=== PATIENT | male | born 1945 | race Caucasian/White ===

== ENCOUNTER → 2017-01-23 | Outpatient (CLI) | payer OTHER ==
[2017-01-23 10:31] LABS: BASOPHILS % (AUTO) 0.6 % (0.0-2.0); EOSINOPHILS # (AUTO) 0.2 K/uL (0.0-0.4); HEMOGLOBIN 11.5 g/dL (14.0-18.0); LYMPHOCYTES # (AUTO) 1.2 K/uL (1.0-5.5); LYMPHOCYTES % (AUTO) 28.3 % (20.5-51.5); MEAN CORPUSCULAR HEMOGLOBIN 29 pg (27-31); MEAN CORPUSCULAR HGB CONC 34 % (32-36); MEAN CORPUSCULAR VOLUME 86 fL (79.0-98.0); MONOCYTES # (AUTO) 0.3 K/uL (0.0-1.0); MONOCYTES % (AUTO) 7.6 % (1.7-9.3); NEUTROPHILS # (AUTO) 2.5 K/uL (1.8-7.7); NEUTROPHILS % (AUTO) 58.5 % (40.0-70.0); PLATELET COUNT (AUTO) 194 K/uL (130-430); RED BLOOD CELL COUNT(AUTO) 3.95 MIL/uL (4.2-6.2); RED CELL DISTRIBUTION WIDTH 12.6 % (9.0-15.0); WHITE BLOOD COUNT (AUTO) 4.2 K/uL (4.8-10.8)
[2017-01-23 10:36] LABS: BILIRUBIN,URINE NEGATIVE (NEGATIVE); BLOOD, URINE NEGATIVE (NEGATIVE); CLARITY/URINE CLEAR (CLEAR); COLOR,URINE YELLOW (YELLOW); GLUCOSE,URINE NEGATIVE (NEGATIVE); KETONES,URINE NEGATIVE (NEGATIVE); LEUKOCYTE ESTERASE ,URINE NEGATIVE (NEGATIVE); NITRITE, URINE NEGATIVE (NEGATIVE); PH,URINE 5.5 (5.0-8.0); PROTEIN URINE 2+ (NEGATIVE); UROBILINOGEN,URINE 0.2 (0.2-1.0)
[2017-01-23 10:44] LABS: RBC,URINE 0-3 /HPF (0-3); WBC,URINE 0-3 /HPF (0-3)
[2017-01-23 10:45] LABS: ALANINE AMINOTRANSFERASE 24 U/L (12-78); ALBUMIN 3.6 g/dL (3.4-4.8); ANION GAP 3 (5-15); ASPARTATE AMINOTRANSFERASE 15 U/L (10-37); BACTERIA,URINE RARE /HPF (None Seen); CALCIUM 8.8 mg/dL (8.4-11.0); CHLORIDE 109 mmol/L (98-107); CHOLESTEROL 146 mg/dL (<200); CREATININE 1.61 mg/dL (0.55-1.30); GLUCOSE 111 mg/dL (70-99); HDL CHOLESTEROL 47 mg/dL (>45); LDL CHOLESTEROL 75 mg/dL (<100); MUCUS,URINE 1+ /LPF (None Seen); POTASSIUM 4.6 mmol/L (3.5-5.1); SODIUM SERUM 139 mmol/L (136-145); TOTAL BILIRUBIN 0.3 mg/dL (0.0-1.0); TOTAL PROTEIN, SERUM 6.9 g/dL (6.4-8.3); TRIGLYCERIDES 108 mg/dL (30-150); UREA NITROGEN, BLOOD 25 mg/dL (8-21); URIC ACID 6.8 mg/dL (2.4-7.0)
[2017-01-26 06:06] LABS: FOLATE (FOLIC ACID) 11.9 ng/mL (>3.0)
[2017-01-26 14:18] LABS: HEMOGLOBIN A1C 6.9 % (4.8-5.6)
[2017-01-26 14:21] LABS: PROSTATE SPECIFIC AG 12.1 ng/mL (0.0-4.0)
[2017-01-26 15:34] LABS: CREATININE, URINE 114.6 mg/dL
[2017-01-26 15:35] LABS: MICROALBUMIN/CREAT RATIO, UR 363.9 MG/G CRE (0.0-30.0)
== END | disposition home or self-care (01) ==
LOC: SLB 09:36
PROVIDERS: ATTEND Internal Medicine
DX: E11.9 Type 2 diabetes mellitus without complications (principal)
CPT/HCPCS: 36415; 80053; 80061; 81000-TC; 82043; 82306; 82570; 82607; 82746; 83036; 84153; 84550-TC; 85025; 86677

== ENCOUNTER 2017-03-13 10:26 | Outpatient (CLI) | payer OTHER ==
[2017-03-13 11:33] LABS: FREE T4 (FREE THYROXINE) 0.8 ng/dL (0.6-1.6); THYROID STIMULATING HORMONE 5.04 uIu/mL (0.34-4.82)
== END 2017-03-13 17:33 | disposition home or self-care (01) ==
LOC: SLB 10:26
PROVIDERS: ATTEND Internal Medicine
DX: E03.9 Hypothyroidism, unspecified (principal)
CPT/HCPCS: 36415; 84439; 84443-TC

== ENCOUNTER 2017-03-18 07:38 | Day surgery (SDC) | payer OTHER ==
[~2017-03-18] VITALS: Ht 170.2 cm; Wt 83.9 kg
[2017-03-18] MEDS ORDERED: SIMETHICONE 40 MG/0.6 ML ML ONE (07:55)
[2017-03-18] MEDS: MIDAZOLAM HCL 5 MG/5 ML VIAL ONE ×4 (09:15→09:36)
[2017-03-18] MEDS: MEPERIDINE HCL/PF 100 MG/ML AMP ONE ×3 (09:15→09:43)
[2017-03-18 13:02] VITALS: BP 180/103; PULSE 76; RESP 15
== END 2017-03-18 11:15 | disposition home or self-care (01) ==
LOC: SDS 07:38
PROVIDERS: ATTEND Internal Medicine Gastroenterology
DX: D12.2 Benign neoplasm of ascending colon (principal); K57.30 Diverticulosis of large intestine without perforation or abscess without bleeding; K64.8 Other hemorrhoids; D12.8 Benign neoplasm of rectum; K21.9 Gastro-esophageal reflux disease without esophagitis; E11.9 Type 2 diabetes mellitus without complications; I10 Essential (primary) hypertension; D64.9 Anemia, unspecified
CPT/HCPCS: 36415; 43239; 45380; 87081; 88305; 88312; 88313; J2175; J2250; J7030

== ENCOUNTER 2017-03-25 08:48 | Outpatient (CLI) | payer OTHER | END 2017-03-25 17:52 | disposition home or self-care (01) | LOC: SUS 08:48 | PROVIDERS: ATTEND Internal Medicine | DX: M47.896 Other spondylosis, lumbar region (principal); I73.9 Peripheral vascular disease, unspecified | CPT/HCPCS: 72110; 93923 ==

== ENCOUNTER 2017-05-31 15:02 | Outpatient (CLI) | payer OTHER ==
[2017-05-31 15:28] LABS: BASOPHILS % (AUTO) 0.7 % (0.0-2.0); EOSINOPHILS # (AUTO) 0.2 K/uL (0.0-0.4); EOSINOPHILS % (AUTO) 4.4 % (0.0-4.0); HEMATOCRIT 34.5 % (36-54); HEMOGLOBIN 11.4 g/dL (14.0-18.0); LYMPHOCYTES # (AUTO) 1.1 K/uL (1.0-5.5); LYMPHOCYTES % (AUTO) 21.4 % (20.5-51.5); MEAN CORPUSCULAR HEMOGLOBIN 28 pg (27-31); MEAN CORPUSCULAR HGB CONC 33 % (32-36); MEAN CORPUSCULAR VOLUME 86 fL (79.0-98.0); MONOCYTES # (AUTO) 0.3 K/uL (0.0-1.0); MONOCYTES % (AUTO) 6.7 % (1.7-9.3); NEUTROPHILS # (AUTO) 3.4 K/uL (1.8-7.7); NEUTROPHILS % (AUTO) 66.8 % (40.0-70.0); PLATELET COUNT (AUTO) 233 K/uL (130-430); RED BLOOD CELL COUNT(AUTO) 4.02 MIL/uL (4.2-6.2); RED CELL DISTRIBUTION WIDTH 12.7 % (9.0-15.0)
[2017-05-31 16:18] LABS: ANION GAP 3 (5-15); CHLORIDE 112 mmol/L (98-107); CREATININE 1.46 mg/dL (0.55-1.30); GLUCOSE 129 mg/dL (70-99); POTASSIUM 5.6 mmol/L (3.5-5.1); SODIUM SERUM 141 mmol/L (136-145); UREA NITROGEN, BLOOD 31 mg/dL (8-21)
== END 2017-05-31 17:44 | disposition home or self-care (01) ==
LOC: SLB 15:02
PROVIDERS: ATTEND Internal Medicine
DX: E11.22 Type 2 diabetes mellitus with diabetic chronic kidney disease (principal); N18.9 Chronic kidney disease, unspecified; D63.1 Anemia in chronic kidney disease; E78.5 Hyperlipidemia, unspecified
CPT/HCPCS: 36415; 80048; 82306; 82607; 84443-TC; 85025

== ENCOUNTER 2017-12-27 09:03 | Outpatient (CLI) | payer OTHER ==
[2017-12-27 09:29] LABS: BASOPHILS % (AUTO) 0.7 % (0.0-2.0); EOSINOPHILS # (AUTO) 0.3 K/uL (0.0-0.4); EOSINOPHILS % (AUTO) 5.6 % (0.0-4.0); HEMATOCRIT 31.9 % (36-54); HEMOGLOBIN 10.7 g/dL (14.0-18.0); LYMPHOCYTES # (AUTO) 1.2 K/uL (1.0-5.5); LYMPHOCYTES % (AUTO) 24.2 % (20.5-51.5); MEAN CORPUSCULAR HEMOGLOBIN 29 pg (27-31); MEAN CORPUSCULAR HGB CONC 34 % (32-36); MEAN CORPUSCULAR VOLUME 87 fL (79.0-98.0); MONOCYTES # (AUTO) 0.4 K/uL (0.0-1.0); MONOCYTES % (AUTO) 7.6 % (1.7-9.3); NEUTROPHILS % (AUTO) 61.9 % (40.0-70.0); PLATELET COUNT (AUTO) 244 K/uL (130-430); RED BLOOD CELL COUNT(AUTO) 3.65 MIL/uL (4.2-6.2); RED CELL DISTRIBUTION WIDTH 12.9 % (9.0-15.0); WHITE BLOOD COUNT (AUTO) 4.9 K/uL (4.8-10.8)
[2017-12-27 09:46] LABS: ALANINE AMINOTRANSFERASE 35 U/L (12-78); ALBUMIN 3.6 g/dL (3.4-4.8); ANION GAP 5 (5-15); ASPARTATE AMINOTRANSFERASE 19 U/L (10-37); CHLORIDE 111 mmol/L (98-107); CHOLESTEROL 107 mg/dL (<200); CREATININE 1.66 mg/dL (0.55-1.30); GLUCOSE 113 mg/dL (70-99); HDL CHOLESTEROL 50 mg/dL (>45); LDL CHOLESTEROL 48 mg/dL (<100); SODIUM SERUM 143 mmol/L (136-145); TOTAL BILIRUBIN 0.3 mg/dL (0.0-1.0); TRIGLYCERIDES 57 mg/dL (30-150); UREA NITROGEN, BLOOD 28 mg/dL (8-21); URIC ACID 6.3 mg/dL (2.4-7.0)
[2017-12-28 12:33] LABS: HEMOGLOBIN A1C 6.9 % (4.8-5.6)
[2017-12-29 09:59] LABS: MICROALBUMIN URINE RANDOM 132.4 ug/ml (NOT ESTABLISHED); MICROALBUMIN/CREAT RATIO, UR 122.6 MG/G CRE (0.0-30.0)
== END 2017-12-27 20:56 | disposition home or self-care (01) ==
LOC: SLB 09:03
PROVIDERS: ATTEND Specialist
DX: I10 Essential (primary) hypertension (principal); E11.21 Type 2 diabetes mellitus with diabetic nephropathy; E11.65 Type 2 diabetes mellitus with hyperglycemia; I70.90 Unspecified atherosclerosis; E78.2 Mixed hyperlipidemia; E53.8 Deficiency of other specified B group vitamins; E55.9 Vitamin D deficiency, unspecified; E03.8 Other specified hypothyroidism
CPT/HCPCS: 36415; 80053; 80061; 82043; 82306; 82570; 82607; 83036; 84550-TC; 85025

== ENCOUNTER 2018-03-29 10:36 | Outpatient (CLI) | payer OTHER ==
[2018-03-29 11:27] LABS: BASOPHILS # (AUTO) 0.1 K/uL (0.0-0.2); BASOPHILS % (AUTO) 1.4 % (0.0-2.0); EOSINOPHILS # (AUTO) 0.2 K/uL (0.0-0.4); EOSINOPHILS % (AUTO) 4.1 % (0.0-4.0); HEMATOCRIT 34.4 % (36-54); HEMOGLOBIN 11.6 g/dL (14.0-18.0); LYMPHOCYTES # (AUTO) 1.1 K/uL (1.0-5.5); LYMPHOCYTES % (AUTO) 24.9 % (20.5-51.5); MEAN CORPUSCULAR HEMOGLOBIN 30 pg (27-31); MEAN CORPUSCULAR HGB CONC 34 % (32-36); MEAN CORPUSCULAR VOLUME 90 fL (79.0-98.0); MONOCYTES # (AUTO) 0.3 K/uL (0.0-1.0); MONOCYTES % (AUTO) 6.6 % (1.7-9.3); NEUTROPHILS # (AUTO) 2.5 K/uL (1.8-7.7); PLATELET COUNT (AUTO) 253 K/uL (130-430); RED BLOOD CELL COUNT(AUTO) 3.84 MIL/uL (4.2-6.2); RED CELL DISTRIBUTION WIDTH 12.9 % (9.0-15.0); WHITE BLOOD COUNT (AUTO) 4.3 K/uL (4.8-10.8)
[2018-03-29 11:51] LABS: ALANINE AMINOTRANSFERASE 26 U/L (12-78); ANION GAP 4 (5-15); ASPARTATE AMINOTRANSFERASE 18 U/L (10-37); CALCIUM 9.4 mg/dL (8.4-11.0); CHLORIDE 106 mmol/L (98-107); CREATININE 2.05 mg/dL (0.55-1.30); GLUCOSE 90 mg/dL (70-99); POTASSIUM 5.3 mmol/L (3.5-5.1); SODIUM SERUM 139 mmol/L (136-145); THYROID STIMULATING HORMONE 4.13 uIu/mL (0.34-4.82); TOTAL BILIRUBIN 0.4 mg/dL (0.0-1.0); UREA NITROGEN, BLOOD 35 mg/dL (8-21)
[2018-03-31 13:27] LABS: HEMOGLOBIN A1C 6.7 % (4.8-5.6); PROSTATE SPECIFIC AG 14.3 ng/mL (0.0-4.0)
== END 2018-03-29 20:23 | disposition home or self-care (01) ==
LOC: SLB 10:36
PROVIDERS: ATTEND Internal Medicine
DX: I10 Essential (primary) hypertension (principal); E11.65 Type 2 diabetes mellitus with hyperglycemia; E78.5 Hyperlipidemia, unspecified; E03.9 Hypothyroidism, unspecified
CPT/HCPCS: 36415; 80053; 83036; 84153; 84443-TC; 85025

== ENCOUNTER 2019-09-06 10:05 | Outpatient (CLI) | payer OTHER ==
[2019-09-06 10:54] LABS: BASOPHILS % (AUTO) 0.9 % (0.0-2.0); EOSINOPHILS # (AUTO) 0.2 K/uL (0.0-0.4); EOSINOPHILS % (AUTO) 4.1 % (0.0-4.0); HEMATOCRIT 35.8 % (36-54); HEMOGLOBIN 12.1 g/dL (14.0-18.0); LYMPHOCYTES # (AUTO) 1.1 K/uL (1.0-5.5); LYMPHOCYTES % (AUTO) 23.7 % (20.5-51.5); MEAN CORPUSCULAR HEMOGLOBIN 29 pg (27-31); MEAN CORPUSCULAR HGB CONC 34 % (32-36); MEAN CORPUSCULAR VOLUME 87 fL (79.0-98.0); MONOCYTES # (AUTO) 0.4 K/uL (0.0-1.0); MONOCYTES % (AUTO) 8.2 % (1.7-9.3); NEUTROPHILS # (AUTO) 2.8 K/uL (1.8-7.7); NEUTROPHILS % (AUTO) 63.1 % (40.0-70.0); PLATELET COUNT (AUTO) 227 K/uL (130-430); WHITE BLOOD COUNT (AUTO) 4.5 K/uL (4.8-10.8)
[2019-09-06 11:40] LABS: ALANINE AMINOTRANSFERASE 47 U/L (12-78); ANION GAP 5 (5-15); ASPARTATE AMINOTRANSFERASE 25 U/L (10-37); CALCIUM 9.1 mg/dL (8.4-11.0); CHLORIDE 107 mmol/L (98-107); CREATININE 1.77 mg/dL (0.55-1.30); GLUCOSE 200 mg/dL (70-99); POTASSIUM 4.5 mmol/L (3.5-5.1); SODIUM SERUM 141 mmol/L (136-145); TOTAL BILIRUBIN 0.5 mg/dL (0.0-1.0); UREA NITROGEN, BLOOD 36 mg/dL (8-21)
[2019-09-06 11:41] LABS: ALBUMIN 3.6 g/dL (3.4-4.8); THYROID STIMULATING HORMONE 5.19 uIu/mL (0.36-3.74); URIC ACID 7.6 mg/dL (2.4-7.0)
[2019-09-06 11:49] LABS: CHOLESTEROL 157 mg/dL (<200); HDL CHOLESTEROL 45 mg/dL (>45); LDL CHOLESTEROL 83 mg/dL (<100); TRIGLYCERIDES 131 mg/dL (30-150)
[2019-09-07 11:14] LABS: HEMOGLOBIN A1C 8.1 % (4.8-5.6)
== END 2019-09-06 20:00 | disposition home or self-care (01) ==
LOC: SLB 10:05
PROVIDERS: ATTEND Internal Medicine
DX: E11.69 Type 2 diabetes mellitus with other specified complication (principal); E78.5 Hyperlipidemia, unspecified; E03.9 Hypothyroidism, unspecified; E56.9 Vitamin deficiency, unspecified; E55.9 Vitamin D deficiency, unspecified
CPT/HCPCS: 36415; 80053; 80061; 82306; 82607; 83036; 84443-TC; 84550-TC; 85025

== ENCOUNTER 2019-11-11 10:28 | Outpatient (CLI) | payer OTHER ==
[2019-11-11 11:44] LABS: ANION GAP 4 (5-15); CALCIUM 8.1 mg/dL (8.4-11.0); CHLORIDE 106 mmol/L (98-107); CREATININE 1.77 mg/dL (0.55-1.30); GLUCOSE 226 mg/dL (70-99); POTASSIUM 4.6 mmol/L (3.5-5.1); SODIUM SERUM 140 mmol/L (136-145); THYROID STIMULATING HORMONE 3.28 uIu/mL (0.36-3.74); UREA NITROGEN, BLOOD 33 mg/dL (8-21)
== END 2019-11-11 21:14 | disposition home or self-care (01) ==
LOC: SLB 10:28
PROVIDERS: ATTEND Internal Medicine
DX: E11.21 Type 2 diabetes mellitus with diabetic nephropathy (principal); E03.9 Hypothyroidism, unspecified
CPT/HCPCS: 36415; 80048; 84443-TC